=== PATIENT | female | born 1970 | race Caucasian/White ===

== ENCOUNTER 2021-11-12 16:47 | Emergency (ER) | payer OTHER, SELFPAY ==
--- NOTE | 2021-11-12 16:52 | ED.FEMALEGU ---
HPI - Female Genitourinary General Chief complaint: Urogenital-Female Stated complaint: uti symptoms Time Seen by Provider: 11/12/21 16:53 Source: patient and RN notes reviewed Mode of arrival: ambulatory Limitations: no limitations History of Present Illness HPI Narrative: 51 y/o female presented for c/o burning with urination, frequency and urgency x3 days. Denies associated n/v/d/constipation, hematuria, flank pain, fever/chills. Post menopausal. Denies concern for STD. Related Data Allergies Allergy/AdvReac Type Severity Reaction Status Date / Time codeine Allergy Unknown Unknown Verified 11/12/21 16:54 morphine AdvReac Severe Nausea and Verified 11/12/21 16:54 Vomiting Review of Systems Review of Systems: CONSTITUTIONAL: Denies body aches, fever, chills, or sweats. CARDIOVASCULAR: Denies chest pain, palpitations, or edema. RESPIRATORY: Denies cough or dyspnea. GASTROINTESTINAL: Denies abdominal pain, nausea, vomiting, or diarrhea. GENITOURINARY: Reports dysuria, frequency, urgency, denies hematuria, flank pain SKIN: Denies rash, itching, or wounds. MUSCULOSKELETAL: Denies back pain or myalgia. [facility] Past Medical History Medical History (Updated 11/12/21 @ 17:04 by Ivette Chacko, OLGA) GERD without esophagitis Insomnia Family History Family History (Updated 04/22/17 @ 09:03 by DOCTOR UNKNOWN) Mother Hypertension Father Family history of type 2 diabetes mellitus Social History Social History Smoking status: Never smoker Second hand tobacco smoke exposure: No Alcohol intake: current Comments At time of signature, I have reviewed and agree with nursing past medical, surgical, social and family history unless otherwise noted. Please see nursing chart for further information. There is no relevant family history pertinent to the presenting complaint Exam Narrative: GENERAL: Well-appearing, anxious to void HEAD: Normocephalic EYES: EOMI. . ENT: Mucous membranes pink and moist. NECK: Normal AROM. Supple. CHEST: No respiratory distress. Clear to auscultation. HEART: Regular rate and rhythm. ABDOMEN: Soft, nontender, nondistended, normal active bowel sounds. No CVA tenderness MUSCULOSKELETAL: No bony tenderness. SKIN: Warm, dry, no rash. NEURO: No focal deficits. Alert and oriented x3. Gait steady. PSYCH: anxious Course Course Emergency Course: Patient is aware of diagnosis, understands and agrees to treatment plan. Anticipatory guidance given. Patient agrees to follow-up as directed and is aware of reasons to seek care at the emergency department. Portions of this record may have been created with voice recognition software Level of Care: Express Care Visit Vital Signs Vital signs: Vital Signs Temperature 97.8 F 11/12/21 16:54 Pulse Rate 83 11/12/21 16:54 Respiratory Rate 16 11/12/21 16:54 Blood Pressure 133/77 11/12/21 16:54 Pulse Oximetry 98 11/12/21 16:54 Temperature 97.8 F 11/12/21 16:55 Pulse Rate 83 11/12/21 16:55 Respiratory Rate 16 11/12/21 16:55 Blood Pressure 133/77 11/12/21 16:55 Pulse Oximetry 98 11/12/21 16:55 Reviewed MDM - Female Genitourinary MDM Narrative Medical decision making narrative: Exam findings and UA c/w uti; patient is non-toxic appearing and is in no distress. Appropriate for treatment of UTI as outpt. Differential Diagnosis Differential diagnosis: Likely urinary tract infection and cystitis Lab Data Attestation: I reviewed the patient's lab results. Labs: Urine Glucose Negative Reference Range: Negative Urine Bilirubin Negative Reference Range: Negative Urine Ketone Negative Reference Range: Negative Urine Specific Labelle 1.020 Reference Range:
[2021-11-12 16:54] VITALS: BP 133/77; PULSE 83; RESP 16; TEMP 36.6; O2SAT 98
[2021-11-12 16:55] VITALS: BP 133/77; PULSE 83; RESP 16; TEMP 36.6; O2SAT 98
== END 2021-11-12 17:11 | disposition home or self-care (01) ==
PROVIDERS: Emergency Provider Nurse Practitioner Family; PCP Family Medicine
DX: R30.0 Dysuria (principal); K21.9 Gastro-esophageal reflux disease without esophagitis
CPT/HCPCS: 81003; 87077; 87086; 87186; 99213; G0463

== ENCOUNTER 2022-08-23 10:14 | Emergency (ER) | payer OTHER, SELFPAY ==
[2022-08-23 10:27] VITALS: BP 115/80; PULSE 88; RESP 16; TEMP 36.8; O2SAT 99
--- NOTE | 2022-08-23 10:46 | ED.GENADULT ---
HPI - General Adult General Chief complaint: Upper Respiratory Infection Stated complaint: not feeling well Source: patient Mode of arrival: ambulatory Limitations: no limitations History of Present Illness HPI narrative: Patient presents for evaluation of sick symptoms for last two days. Symptoms include fever, sinus congestion, clear rhinorrhea, productive cough of clear and green sputum, generalized body aches, and weakness. She did have a sore throat yesterday but that has since resolved. No nausea, vomiting, diarrhea. No recent sick contacts to her knowledge. She had COVID in 2021. She smokes approximately a quarter pack per day. No additional complaints or concerns. Related Data Allergies Allergy/AdvReac Type Severity Reaction Status Date / Time codeine Allergy Unknown Unknown Verified 08/23/22 10:36 morphine AdvReac Severe Nausea and Verified 08/23/22 10:36 Vomiting Review of Systems Review of Systems: CONSTITUTIONAL: Reports fever, chills, fatigue EYES: Denies visual changes, redness, or discharge. ENT: reports sinus congestion and rhinorrhea. reports sore throat yesterday, now resolved. CARDIOVASCULAR: Denies chest pain, palpitations, or edema. RESPIRATORY: Reports cough and exertional dyspnea. GASTROINTESTINAL: Denies abdominal pain, nausea, vomiting, or diarrhea. GENITOURINARY: Denies dysuria or hematuria. SKIN: Denies rash or itching. MUSCULOSKELETAL: Reports generalized body aches NEUROLOGIC: reports generalized weakness. Denies headache, numbness, or dizziness PSYCHIATRIC: Denies anxiety or depression. [facility] Past Medical History Medical History Anxiety and depression GERD without esophagitis Insomnia Surgical History Surgical History History of D&C History of tubal ligation Family History Family History Mother Hypertension Father Family history of type 2 diabetes mellitus Social History Social History Smoking packs per day: 0.5 Smoking cigarettes per day: 10.0 Years smoked: 34 Smoking pack-years: 17.00 Smoking status: Current every day smoker Tobacco type: cigarettes Second hand tobacco smoke exposure: No Alcohol intake: current Exam Narrative: GENERAL: Well-appearing, well-nourished, and in no acute distress. HEAD: Normocephalic, atraumatic. EYES: PERRLA and EOMI. ENT: Nares clear, no rhinorrhea or epistaxis. Mucous membranes moist. Posterior pharyngeal erythema without exudate. Uvula is midline.. Bilateral TMs pearly mildly erythematous but nonbulging NECK: Supple. No adenopathy or masses. No carotid bruits or JVD CHEST: Clear to auscultation. No respiratory distress. No wheezes rales or rhonchi HEART: Regular rate and rhythm. No murmur heard. Normal peripheral pulses. ABDOMEN: Soft, nontender, nondistended, normal active bowel sounds. EXTREMITIES: Normal range of motion. No edema. SKIN: Warm, dry, no rash. NEURO: No focal deficits. Alert and oriented x3. PSYCH: Normal mood and affect. Course Course Emergency Course: This is a 51-year-old female who presented for evaluation of sick symptoms. COVID and influenza were negative. Exam is consistent with acute viral syndrome. Increase hydration. [id number] agents for symptom management. Follow up with primary provider. Go to the ER for difficulty breathing or swallowing. Patient in agreement plan of care. Level of Care: Express Care Visit Vital Signs Vital signs: Vital Signs Temperature 36.8 C 08/23/22 10:27 Pulse Rate 88 08/23/22 10:27 Respiratory Rate 16 08/23/22 10:27 Blood Pressure 115/80 08/23/22 10:27 Pulse Oximetry 99 08/23/22 10:27 Temperature 36.8 C 08/23/22 10:27 Pulse Rate 88 08/23/22 10:27 Respiratory
== END 2022-08-23 11:50 | disposition home or self-care (01) ==
PROVIDERS: Emergency Provider Nurse Practitioner; PCP Family Medicine
DX: B34.9 Viral infection, unspecified (principal); Z20.822 Contact with and (suspected) exposure to COVID-19; F17.210 Nicotine dependence, cigarettes, uncomplicated; K21.9 Gastro-esophageal reflux disease without esophagitis; Z86.16 Personal history of COVID-19; F32.A Depression, unspecified; F41.9 Anxiety disorder, unspecified
CPT/HCPCS: 87426; 87804; 99213; C9803; G0463

== ENCOUNTER 2022-10-17 11:07 | Emergency (ER) | payer OTHER, SELFPAY ==
[2022-10-17 11:20] VITALS: BP 127/79; PULSE 72; RESP 18; TEMP 36.8; O2SAT 100
--- NOTE | 2022-10-17 11:54 | ED.WOUNDLAC ---
HPI - Wound/Laceration General Chief Complaint: Extremity Injury, Upper Stated Complaint: Right Hand Finger Pain Time Seen by Provider: 10/17/22 11:30 Source: patient Mode of arrival: ambulatory Limitations: no limitations History of Present Illness HPI narrative: Katie is a 52-year-old female patient presenting to the clinic today with complaints of a laceration to the right 3rd finger. She reports that this occurred on Wednesday of last week. Has been keeping it clean and dry at home. States it is throbbing would like it looked at. Patient reports that she has good on her tetanus Related Data Home Medications Medication Instructions Recorded Confirmed quetiapine 100 mg tablet mg 10/17/22 10/17/22 Allergies Allergy/AdvReac Type Severity Reaction Status Date / Time codeine Allergy Unknown Unknown Verified 10/17/22 11:20 morphine AdvReac Severe Nausea and Verified 10/17/22 11:20 Vomiting Review of Systems Review of Systems: Pertinent positives per HPI. Patient denies any fever, chills, rash, headache, visual changes, dizziness, cough, runny nose, sore throat, shortness of breath, chest pain, palpitations, nausea, vomiting, diarrhea, constipation, abdominal pain, or any urinary issues. [facility] Past Medical History Medical History Anxiety and depression GERD without esophagitis Insomnia Surgical History Surgical History History of D&C History of tubal ligation Family History Family History Mother Hypertension Father Family history of type 2 diabetes mellitus Social History Social History Smoking packs per day: 0.5 Smoking cigarettes per day: 10.0 Years smoked: 34 Smoking pack-years: 17.00 Smoking status: Current every day smoker Tobacco type: cigarettes Second hand tobacco smoke exposure: No Alcohol intake: current Comments At the time of my signature, I reviewed and agree with the nursing past medical, surgical, social, and family history. There is no relevant family history pertinent to the patient complaint. Exam Narrative: General: Well-developed, well nourished, in no apparent distress Head: Normocephalic, atraumatic. Cardio: Regular rate and rhythm, s1 and s2 normal, no murmur appreciated. Resp: Clear to auscultation bilaterally, no rhonchi, rales, wheezing or rubs. Integumentary: Vian, warm, and dry, 1.5 cm skin avulsion to the volar aspect of the right distal 3rd finger with approximately a 0.5 cm gap. No redness noted with mild swelling. Tenderness to palpation, clear discharge Course Course Emergency Course: Portions of this record may have been created with voice recognition software. Level of Care: Express Care Visit Vital Signs Vital signs: Vital Signs Temperature 36.8 C 10/17/22 11:20 Pulse Rate 72 10/17/22 11:20 Respiratory Rate 18 10/17/22 11:20 Blood Pressure 127/79 10/17/22 11:20 Pulse Oximetry 100 10/17/22 11:20 Temperature 36.8 C 10/17/22 11:20 Pulse Rate 72 10/17/22 11:20 Respiratory Rate 18 10/17/22 11:20 Blood Pressure 127/79 10/17/22 11:20 Pulse Oximetry 100 10/17/22 11:20 Vital signs reviewed MDM - Wound/Laceration MDM Narrative Medical decision making narrative: At the time of visit patient is resting comfortably on the exam table. I suspect patient has a skin avulsion that is not infected. Supportive measures were discussed with the patient she voiced understanding discharge instructions and agrees to treatment plan. Metal splint was applied to allow patient to avoid hitting her finger while at work Differential Diagnosis Differential diagnosis: Likely avulsion of skin Discharge Plan Discharge Clinical Impression: Avulsion of skin of finger Qual
== END 2022-10-17 12:08 | disposition home or self-care (01) ==
PROVIDERS: Emergency Provider Nurse Practitioner Family; PCP Family Medicine
DX: S61.202A Unspecified open wound of right middle finger without damage to nail, initial encounter (principal); X58.XXXA Exposure to other specified factors, initial encounter; K21.9 Gastro-esophageal reflux disease without esophagitis; F17.210 Nicotine dependence, cigarettes, uncomplicated; F32.A Depression, unspecified
CPT/HCPCS: 29130; 99211; 99212; G0463

== ENCOUNTER 2023-05-05 10:45 | Outpatient (RCR) | payer OTHER, SELFPAY ==
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
--- NOTE | 2023-05-05 12:02 | OPREHPOC ---
Outpatient Therapy Plan of Care This is a Multidisciplinary Plan of Care that may contain components documented by all disciplines (PT, OT, and ST.) PT Problem 1 PT Problem #1 Knowledge Deficit PT Goal 1 Goal Independent with the home Giovanni Archibald Target Visit 3 PT Problem 2 PT Problem #2 Impaired Visual Perceptio PT Goal 1 Goal Pt. will report no episodes of dizziness in a 1 week period. Target Visit 3
--- NOTE | 2023-06-18 10:48 | PTOPDC ---
Assessment and note entered by Renetta Carbone, PT Discharge Information Assessment PT Clinical Summary PHYSICAL THERAPY DISCHARGE Katie received the PT evaluation on May 05 for the diagnosis of BPPV. She did not return for any further treatment, therefore, she will be discharged from PT services. The goals were not addressed. Plan of Care PT Services Indicated No
== END 2023-06-18 14:44 | disposition home or self-care (01) ==
LOC: ANHPT 10:45
PROVIDERS: PCP Family Medicine; Visit Provider Family Medicine
DX: H81.11 Benign paroxysmal vertigo, right ear (principal)
CPT/HCPCS: 95992; 97161

== ENCOUNTER 2023-06-07 19:01 | Emergency (ER) | payer OTHER, SELFPAY ==
[2023-06-07 19:13] VITALS: BP 120/98; PULSE 77; RESP 18; TEMP 36.9; O2SAT 100
--- NOTE | 2023-06-07 19:19 | ECG_ITS ---
Measurements Intervals [place] Rate: 72 P: 53 [place]: 158 QRS: 9 QRSD: 120 T: 34 QT: 366 QTc: 401 Interpretive Statements SINUS RHYTHM POSSIBLE LEFT ATRIAL ENLARGEMENT [-0.1mV P WAVE IN V1/V2] POSSIBLE RIGHT VENTRICULAR CONDUCTION DELAY [RSR (QR) IN V1/V2] NO PREVIOUS ECG AVAILABLE FOR COMPARISON Electronically Signed On 06-08-2023 19:48:35 CDT by Kalli Schaefer M.D.
[2023-06-07 20:15] LABS: Influenza A QL RT-PCR Negative (Negative); Influenza B QL RT-PCR Negative (Negative); RSV RNA, RT-PCR Negative (Negative); SARS-CoV-2 RNA PCR Negative (Negative)
== END 2023-06-07 20:00 | disposition left against medical advice (07) ==
PROVIDERS: Emergency Provider Emergency Medicine; PCP Family Medicine
DX: R05.9 Cough, unspecified (principal); Z20.822 Contact with and (suspected) exposure to COVID-19
CPT/HCPCS: 87637; 93005; 99199

== ENCOUNTER 2023-07-02 09:23 | Outpatient (CLI) | payer OTHER, SELFPAY ==
--- NOTE | 2023-07-02 09:38 | ECHO_ITS ---
Patient Info Name: Katie Cota Age: 52 years : 1970 Gender: Female Ht: 65 in Wt: 161 lbs BSA: 1.85 m2 HR: 75 bpm BP: 126 / 70 mmHg Technical Quality: Fair Exam Date: 07/02/2023 9:49 AM Exam Location: Echo Lab Patient Status: Outpatient Admit Date: 07/02/2023 Staff Ordering Physician: Patrice Ireland DO Rate Quoting Operator: Lisbet Lentz RDCS Attending Provider: Patrice Ireland DO Referring Physician: Beka STEELE; Exam Type: CA echo doppler color flow Study Info Indications R06.09 - Other forms of dyspnea Complete two-dimensional, color flow and Doppler transthoracic echocardiogram is performed. Summary 1. Complete two-dimensional, color flow and Doppler transthoracic echocardiogram is performed. 2. Left ventricular chamber dimension is normal. 3. Left ventricular systolic function is normal, estimated at 60-65%. 4. The left ventricular diastolic function is grade II diastolic dysfunction. 5. E/e' 13 is mildly elevated. 6. Moderate right ventricular hypertrophy. 7. Left atrial chamber dimension is mildly enlarged. 8. There is trace mitral valve regurgitation. 9. There is trace tricuspid valve regurgitation. 10. No pulmonary hypertension, estimated pulmonary arterial systolic pressure is 25 mmHg. Left Ventricle E/e' 13 is mildly elevated. Left ventricular chamber dimension is normal. Left ventricular systolic function is normal, estimated at 60-65%. The left ventricular diastolic function is grade II diastolic dysfunction. Right Ventricle Right ventricular systolic function is normal and with normal TAPSE 2.5 cm. Moderate right ventricular hypertrophy. Right ventricular chamber dimension is normal. Left Atria Left atrial chamber dimension is mildly enlarged. Right Atria Right atrial chamber dimension is normal. Aortic Valve The aortic valve is trileaflet. There is no aortic valve stenosis. There is no aortic valve regurgitation. Pulmonic Valve There is no pulmonic regurgitation. Mitral Valve There is no mitral valve stenosis. There is trace mitral valve regurgitation. Tricuspid Valve There is trace tricuspid valve regurgitation. No pulmonary hypertension, estimated pulmonary arterial systolic pressure is 25 mmHg. Pericardium/Pleural There is no pericardial effusion. Inferior Vena Cava Normal inferior vena cava with >50% collapse upon inspiration consistent with normal right atrial pressure, 5 mmHg. Aorta The aortic root size at the sinus of Valsalva is normal. Left Ventricular Outflow Tract Name Value Normal LVOT 2D LVOT Diameter 2.0 cm LVOT Doppler LVOT Peak Gradient 6 mmHg LVOT Mean Gradient 3 mmHg LVOT VTI 25 cm LVOT VTI/AV VTI Ratio 0.9 LVOT Stroke Volume 84 ml LVOT CO 16.7 l/min LVOT CI 9.0 l/min/m2 Pulmonic Valve Name Value Normal RVOT Doppler
== END 2023-07-02 09:24 | disposition home or self-care (01) ==
LOC: ANHCARD 09:24
PROVIDERS: PCP Family Medicine; Visit Provider Internal Medicine Cardiovascular Disease
DX: R06.09 Other forms of dyspnea (principal)
CPT/HCPCS: 93306

== ENCOUNTER 2025-07-27 14:36 | Emergency (ER) | payer OTHER, SELFPAY ==
--- NOTE | 2025-07-27 14:37 | ED_ITS ---
HPI - Female Genitourinary General Chief complaint: Urogenital-Female Stated complaint: Uti Symptoms Time Seen by Provider: 07/27/25 14:37 Source: patient Mode of arrival: ambulatory Limitations: no limitations History of Present Illness HPI Narrative: Patient is a 54-year-old female a presents with urinary pain, pressure that started last night along with urgency and frequency. Denies any vaginal itching, discharge or concern for STI. Denies any fever, chills, nausea, vomiting, diarrhea. Finished amoxicillin a few days ago and states that did give her diarrhea. Does report right lower back pain MD elicited complaint: dysuria Related Data Allergies Allergy/AdvReac Type Severity Reaction Status Date / Time codeine Allergy Unknown Unknown Verified 07/27/25 14:44 morphine AdvReac Severe Nausea and Verified 07/27/25 14:44 Vomiting Review of Systems Review of Systems: All systems reviewed & are unremarkable except as noted in HPI and below Constitutional: Constitutional: Denies chills, Denies fever(s), Denies headache(s), Denies malaise and Denies weakness Eyes: Eyes: Denies change in vision, Denies eye discharge and Denies irritation ENT: Denies otalgia, Denies headache(s), Denies nasal congestion, Denies nasal discharge, Denies sinus pain and Denies sore throat Cardiovascular: Cardiovascular: Denies chest pain, Denies edema, Denies palpitations and Denies dyspnea Respiratory: Respiratory: Denies cough and Denies dyspnea Gastrointestinal: Gastrointestinal: Denies abdominal pain, Denies diarrhea, Denies nausea and Denies vomiting Genitourinary: Genitourinary: Denies hematuria, Reports nocturia, Reports dysuria, Reports flank pain and Reports urinary urgency Musculoskeletal: Musculoskeletal: Denies back pain and Denies numbness Integumentary/Breasts: Skin/Breast: Denies pruritus and Denies rash Neurologic: Denies headache(s), Denies numbness and Denies weakness Psychiatric: Psychiatric: Reports no additional psychiatric complaints Endocrine: Endocrine: Denies palpitations PMFSH Past Medical History Medical History Dyslipidemia Anxiety and depression Insomnia GERD without esophagitis Surgical History Surgical History History of tubal ligation History of D&C Family History Family History Mother Hypertension Father Family history of type 2 diabetes mellitus Social History Social History Social History: Caffeine-tea, occasional coffee Smoking packs per day: 0.3 Smoking cigarettes per day: 6.0 Years smoked: 35 Smoking pack-years: 10.50 Smoking status: Current every day smoker Tobacco type: cigarettes Second hand tobacco smoke exposure: No Alcohol intake: current Substance use: never Substance use type: does not use Lack of Transportation: YES Lack of Food: Never True Current Housing: I Have Housing Concerned About Future Housing: No Difficulty Paying Gas/Electric Bills: No Difficulty Paying for Meds: No Currently Unemployed: No Education: High School Diploma/GED Difficulty w/ Childcare or Family Care: No Comments At time of signature, agree with nursing past medical, surgical, social and family history. There is no relevant family history pertinent to the presenting complaint. Exam Const: General: cooperative, healthy appearing, comfortable, no acute distress and well nourished Nutritional Appearance: well nourished Orientation/consciousness: patient oriented x3 HENMT: Head: normocephalic and atraumatic Ears: external ears normal Face/Nose/Sinus: Normal external nose present, Normal nares present and normal facial exam Face and sinus: normal facial exam Eyes: General: appearance normal, both eyes and all related structures Pupils: Equal, round and reactive pupils present EOM: EOMs intact bilaterally Neck: Neck: normal visual inspection, full ROM and supple Chest: Chest palpation & inspection: normal inspection of the chest Resp: Effort & Inspection: normal respiratory effort and able to speak in complete sentences Cardio: Rate: regular rate Rhythm: regular rhythm GI: Inspection: normal to inspection GI Palp: No abdominal tenderness and Yes Soft to palpation : General: Yes no CVA tenderness Back/Spine/Pelvis: Back: CVA tenderness ( right sign) Skin: General skin exam: normal color and no rashes or lesions noted Neuro: General: patient oriented x3 and moves all extremities Cranial nerves: Yes Equal, round and reactive pupils present Extrem: General: normal to inspection and full ROM Psych: Appearance: grossly normal and well kempt Course Course Emergency Course: Patient is aware of diagnosis, understands and agrees to treatment plan. Anticipatory guidance given. Patient agrees to follow-up as directed and is aware of reasons to seek care at the emergency department. Portions of this record may have been created with voice recognition software Level of Care: Express Care Visit Vital Signs Vital signs: Vital Signs Temperature 36.1 C L 07/27/25 14:38 Pulse Rate 95 07/27/25 14:38 Respiratory Rate 18 07/27/25 14:38 Blood Pressure 116/62 07/27/25 14:38 Pulse Oximetry 99 07/27/25 14:38 Oxygen Delivery Room Air 07/27/25 14:38 Temperature 36.1 C L 07/27/25 14:38 Pulse Rate 95 07/27/25 14:38 Respiratory Rate 18 07/27/25 14:38 Blood Pressure 116/62 07/27/25 14:38 Pulse Oximetry 99 07/27/25 14:38 Oxygen Delivery Room Air 07/27/25 14:38 [facility] Narrative Medical decision making narrative: Based on symptoms and positive point of care UA, patient will be treated with antibiotics. Pt well hydrated appearing, in no respiratory distress, hemodynamically stable. Recommend supportive care. The patient is stable at time of discharge the clinical impression was discussed and the patient was given the opportunity to ask questions, which were addressed as completely as possible given the information available at present. Anticipatory guidance and return to care precautions were discussed and the importance of primary care follow-up was stressed and encouraged. The patient voiced understanding of the plan, indications to return, and the need for follow-up. Exam findings show no acute concerns or changes Patient is appropriate for outpatient treatment and follow-up. Differential Diagnosis Differential Diagnosis: Differential diagnostic considerations for female urogenital? issues include urinary tract infection, bacterial vaginosis, cervicitis, ovarian cyst, vaginitis, STI exposure, ovarian torsion, ectopic , cyst of Bartholin?s gland, cystitis, dysmenorrhea.?? Medical Records I have reviewed the following patient records and this information was taken into consideration when formulating the assessment and plan.: previous clinic visits Lab Data [facility] Lab Attestation statement: I personally reviewed the patient's lab results. Labs: Lab Results 07/27/25 Range/Units 14:56 POC Urine Color Dark POC Urine Clarity Cloudy POC Urine pH 5.5 POC Ur Specif [place] 1.030 POC Urine Protein Negative (Negative) POC Ur Glucose (UA) Trace (Negative) POC Urine Ketones Negative (Negative) POC Urine Blood 1+ (Negative) POC Urine Nitrite Positive (Negative) POC Urine Bilirubin 1+ (Negative) POC Urine Urobilinogen 0.2 POC U Leukocyte Esteras Negative (Negative) Discharge Plan Discharge Clinical Impression: Urinary tract infection Qualifiers: Urinary tract infection type: acute cystitis Hematuria presence: with hematuria Qualified Code(s): N30.01 - Acute cystitis with hematuria Patient Disposition: Home Condition: Stable Instructions: Urinary Tract Infection in Women (ED) Additional Instructions: We will send a urine culture to the lab, based on your symptoms and urine dip we will start treatment today. If culture comes back and bacteria is not susceptible to antibiotic, your prescription may change. Your symptoms should improve within a day of starting antibiotics, but you should finish all the antibiotic pills you get. Otherwise your infection might come back Continue with increased water intake. Take Tylenol or ibuprofen as needed for pain or fever. Follow-up with primary care provider for urine recheck or see ER visit if condition worsens with high fever, nausea, vomiting, severe back pain Patient Language: Maltese Prescriptions: New sulfamethoxazole-trimethoprim 800-160 mg tablet 1 tablet PO Q12H 7 Days Qty: 14 0RF No Action doxycycline hyclate 100 mg capsule 100 mg PO BID Qty: 14 0RF metronidazole 1 % gel 1 applic topical QHS Qty: 60 0RF cholecalciferol (vitamin D3) 1,250 mcg (50,000 unit) tablet 1,250 mcg PO WEEKLY Qty: 12 1RF (DME) comp.stocking,knee,long,medium Misc See Rx Instructions .Route Qty: 6 0RF Rx Instructions: 30mmHg to be worn during the day hydroxyzine HCl 25 mg tablet 25 mg PO TID PRN (Reason: anxiety) Qty: 270 0RF cyanocobalamin (vitamin B-12) 1,000 mcg tablet, sublingual 1,000 mcg sublingual DAILY Qty: 90 1RF cholecalciferol (vitamin D3) 1,250 mcg (50,000 unit) capsule 1,250 mcg PO WEEKLY Qty: 12 1RF simvastatin 20 mg tablet 20 mg PO DAILY Qty: 90 1RF quetiapine 100 mg tablet 100 mg PO DAILY Qty: 90 1RF pantoprazole 40 mg tablet,delayed release (DR/EC) 40 mg PO DAILY Qty: 90 1RF Follow-up/Referrals: Jesica Gibbs MD [Primary Care Provider, Family Practice] - 3 Days Stand Alone Forms: Work/School Release IP Time of Disposition: 15:18
[2025-07-27 14:38] VITALS: BP 116/62; PULSE 95; RESP 18; TEMP 36.1; O2SAT 99
[2025-07-27 15:00] LABS: EDUAAPPEAR Cloudy; EDUABILI 1+ (Negative); EDUABLOOD 1+ (Negative); EDUACOLOR1 Dark; EDUAGLUCOSE Trace (Negative); EDUAKETONE Negative (Negative); EDUALEUKO Negative (Negative); EDUANITRATE Positive (Negative); EDUAPH 5.5; EDUAPROTEIN Negative (Negative); EDUASPGRAVITY 1.030; EDUAUROBILI 0.2
== END 2025-07-27 15:19 | disposition home or self-care (01) ==
PROVIDERS: Emergency Provider Nurse Practitioner Family; PCP Family Medicine
DX: N30.01 Acute cystitis with hematuria (principal); F17.210 Nicotine dependence, cigarettes, uncomplicated; E78.5 Hyperlipidemia, unspecified; K21.9 Gastro-esophageal reflux disease without esophagitis; F41.9 Anxiety disorder, unspecified; F32.A Depression, unspecified
CPT/HCPCS: 81003; 87086; 87186; 99213; G0463